=== PATIENT | male | born 1970 | race Caucasian/White ===

== ENCOUNTER 2017-04-27 13:37 | Emergency (ER) | payer MEDICARE ==
[2017-04-27 15:06] LABS: BASOPHIL 0.3 % (0-2); EOSINOPHIL 0.4 % (0-5); HCT 44.2 % (42.0-52.0); HGB 15.6 g/dl (13.2-18.0); LYMPHOCYTE 6.2 % (15-48); MCH 30.5 pg (25.0-31.0); MCHC 35.3 g/dL (32.0-36.0); MCV 86.5 fL (78.0-100.0); MONOCYTE 6.2 % (0-12); MPV 8.7 fL (6.0-9.5); NEUTROPHIL 86.9 % (41-80); PLT 393 K/uL (150-400); RBC 5.11 M/uL (4.70-6.00)
[2017-04-27 15:07] LABS: WBC 22.8 K/uL (4.0-10.5)
[2017-04-27 15:29] LABS: ACETAMINOPHEN (TYLENOL) < 5.0 ug/mL (10.0-30.0); ALCOHOL (ETOH) MEDICAL NONE DETECTED; SALICYLATE < 6 ug/mL (0-300)
[2017-04-27 15:30] LABS: ALBUMIN 4.8 g/dL (3.5-5.0); BILIRUBIN - TOTAL 0.3 mg/dL (0.1-1.0); CREATININE 1.6 mg/dL (0.7-1.2); GLOBULIN (CALCULATION) 2.5 g/dL (2.2-4.2); POTASSIUM 4.1 mmol/L (3.5-5.1); TOTAL PROTEIN 7.3 g/dL (6.4-8.3)
[2017-04-27 15:44] LABS: LACTIC ACID 2.6 mmol/L (0.5-2.2)
== END 2017-04-27 18:41 | disposition left against medical advice (07) ==
LOC: FER 13:37 → FICU 17:55 → FER 17:55 → FICU 18:41
PROVIDERS: Internal Medicine
DX: T40.2X1A Poisoning by other opioids, accidental (unintentional), initial encounter (principal); J96.02 Acute respiratory failure with hypercapnia; J96.01 Acute respiratory failure with hypoxia; N17.9 Acute kidney failure, unspecified; Y92.009 Unspecified place in unspecified non-institutional (private) residence as the place of occurrence of the external cause; I10 Essential (primary) hypertension; M19.90 Unspecified osteoarthritis, unspecified site
CPT/HCPCS: 36415; 36600; 71010; 80053; 82550; 82803; 83605; 84484; 85025; 87040; 93005; 94640; G0480; J2310; J2930